=== PATIENT | female | born 1950 | race Caucasian/White ===

== ENCOUNTER → 2019-05-09 08:50 | Outpatient (BNVA) | payer MEDICARE, MEDICAID, SELFPAY | PROVIDERS: Family Provider Registered Nurse; PCP Registered Nurse; Visit Provider Registered Nurse | DX: E11.9 Type 2 diabetes mellitus without complications (principal); E03.9 Hypothyroidism, unspecified; I10 Essential (primary) hypertension; E78.5 Hyperlipidemia, unspecified | CPT/HCPCS: 80053; 80061; 83036; 84443; 85025 ==

== ENCOUNTER 2019-07-23 13:54 | Inpatient (IN) | payer MEDICARE, MEDICAID, SELFPAY ==
[2019-07-23] VITALS (7 sets, daily range): BP systolic 117–151; BP diastolic 68–83; PULSE 58–91; RESP 14–18; TEMP 36.4–37.1; O2SAT 93–99; BMI 31.1
--- NOTE | 2019-07-23 | CTR_ITS ---
PROCEDURE INFORMATION: Exam: CT Head Without Contrast Exam date and time: 07/23/2019 4:07 PM Age: 69 years old Clinical indication: Speech disturbance and weakness, extremity and weakness, facial; Left; Patient HX: L sided weakness and slurred speech - mostly resolved; Additional info: CVA TECHNIQUE: Imaging protocol: Computed tomography of the head without contrast. Total DLP: 729.79 mGy-cm Radiation optimization: All CT scans at this facility use at least one of these dose optimization techniques: automated exposure control; mA and/or kV adjustment per patient size (includes targeted exams where dose is matched to clinical indication); or iterative reconstruction. COMPARISON: No relevant prior studies available. FINDINGS: Brain: No acute intracranial mass or bleed. Mild cerebral atrophy. Moderate amount of chronic appearing cerebral hemisphere subcortical and periventricular white matter low-density. Ventricles: Normal. No ventriculomegaly. Bones/joints: Unremarkable. No acute fracture. Sinuses: Visualized sinuses are unremarkable. No fluid levels. Mastoid air cells: Visualized mastoid air cells are well aerated. Soft tissues: Unremarkable. CT/CT head wo con* [id number] IMPRESSION: No acute findings. Mild cerebral atrophy. Moderate amount of chronic appearing white matter microvascular changes. Radiation Dose CTDIVOL = (mGy): DLP = 729.79 (mGy-cm)
--- NOTE | 2019-07-23 14:13 | PC.NURSE ---
DENTURES - PATIENT HAS ONLY TOP DENTURES. SUELLENW, STEAMER TENDER
--- NOTE | 2019-07-23 14:14 | XRR_ITS ---
PROCEDURE INFORMATION: Exam: XR Chest, 1 View Exam date and time: 07/23/2019 2:19 PM Age: 69 years old Clinical indication: Shortness of breath; Additional info: Copd TECHNIQUE: Imaging protocol: XR of the chest Views: 1 view. COMPARISON: No relevant prior studies available. FINDINGS: Lungs: Unremarkable. No consolidation. Pleural space: Unremarkable. No pleural effusion. No pneumothorax. Heart/Mediastinum: Unremarkable. No cardiomegaly. Bones/joints: Unremarkable. XR/XR chest 1V portable [id number] IMPRESSION: No acute findings.
--- NOTE | 2019-07-23 14:16 | USCV_ITS ---
Enid Nguyen Age: 69 Gender: F : 1950 Exam Date: 07/23/2019 15:21 Ordering Phys: Rafael Francisco MD Technologist: Jenae Coley Exam Location: [facility] – [place] Indication: STROKE BP: 151 / 83 HR: 59 Rhythm: Sinus Technical Quality: Suboptimal MEASUREMENTS (Male / Female) Normal Values 2D ECHO LV Diastolic Diameter PLAX 2.6 cm 4.2 - 5.9 / 3.9 - 5.3 cm LV Systolic Diameter PLAX 1.8 cm LV Chamber Size 3.7 cm IVS Diastolic Thickness 1.5 cm 0.6 - 1.0 / 0.6 - 0.9 cm IVS Systolic Thickness 1.6 cm LVPW Diastolic Thickness 1.1 cm 0.6 - 1.0 / 0.6 - 0.9 cm LVPW Systolic Thickness 1.8 cm RV Chamber Size 2.3 cm LVOT Diameter 1.9 cm LV Ejection Fraction 2D Teich 61.5 % LV Ejection Fraction MOD 2C 73.5 % LV Ejection Fraction 2C AL 73.1 % LA Diameter 3.3 cm LA Width 2.1 cm LA Height 3.6 cm RA Width 2.5 cm RA Height 3.4 cm Aorta at Sinotubular Diameter 2.0 cm M-MODE LV Diastolic Diameter MM 3.9 cm 4.2 - 5.9 / 3.9 - 5.3 cm LV Systolic Diameter MM 2.5 cm LV Ejection Fraction MM Teich 66.7 % IVS Diastolic Thickness MM 1.5 cm 0.6 - 1.0 / 0.6 - 0.9 cm IVS Systolic Thickness MM 1.3 cm LVPW Diastolic Thickness MM 1.4 cm 0.6 - 1.0 / 0.6 - 0.9 cm LVPW Systolic Thickness MM 1.9 cm RV Diastolic Diameter MM 2.3 cm Aortic Annulus Diameter 2.4 cm LA Ao Ratio MM 1.4 MV E Point Septal Separation 0.4 cm DOPPLER AV Peak Velocity 169.0 cm/s LVOT Peak Velocity 102.0 cm/s AV Area Cont Eq vti 2.1 cm squared AV Area Cont Eq pk 1.7 cm squared MV Area PHT 3.1 cm squared Mitral E to A Ratio 0.7 MV E' Velocity 9.0 cm/s Mitral E to MV E' Ratio 8.3 Mitral E to LV E' Lateral Ratio 8.1 Mitral E to LV E' Septal Ratio 8.6 TV Peak E Velocity 52.0 cm/s Right Atrial Pressure 3.0 mmHg PV Peak Velocity 84.0 cm/s RV Acceleration Time 0.1 s RV Ejection Time 0.3 s RV AcT/ET 0.3 FINDINGS Left Ventricle Normal left ventricular size, systolic function and wall thickness, with no regional wall motion abnormalities. Left ventricular ejection fraction is estimated at 60 %. Normal diastolic function. Right Ventricle Normal right ventricular size and systolic function. Right Atrium Normal right atrial size. Right atrial pressure estimated at 3 mm Hg. Left Atrium Normal left atrial size. Mitral Valve Mild mitral annular calcification. No mitral valve stenosis. Trace mitral valve regurgitation. Aortic Valve Aortic valve not well visualized. No aortic valve stenosis. No aortic valve regurgitation. Tricuspid Valve Structurally normal tricuspid valve. Trace tricuspid valve regurgitation. Pulmonic Valve Pulmonic valve not well visualized. Pericardium No pericardial effusion. Aorta Normal size aortic root and proximal ascending aorta. CONCLUSIONS 1. Normal left ventricular size, systolic function and wall thickness, with no regional wall motion abnormalities. Left ventricular ejection fraction is estimated at 60 %. Normal diastolic function. 2. Normal right ventricular size and systolic function. 3. No significant valvular abnormality. 4. Right atrial pressure estimated at 3 mm Hg. 5. No prior similar studies to compare. Rachel Jenkins MD (Electronically Signed) Final Date: 23 July 2019 20:00 S
--- NOTE | 2019-07-23 14:16 | ECG_ITS ---
Measurements Intervals [place] Rate: 68 P: 51 AR: 173 QRS: -1 QRSD: 85 T: 28 QT: 409 QTc: 435 SINUS RHYTHM WITH OCCASIONAL SUPRAVENTRICULAR PREMATURE COMPLEXES LOW QRS VOLTAGE IN PRECORDIAL LEADS [QRS DEFLECTION < 1.0 mV IN CHEST LEADS] No previous ECG available for comparison Electronically Signed On 07-23-2019 17:07:59 CDT by Rachel Jenkins M.D. [email or web address]
--- NOTE | 2019-07-23 14:51 | CTR_ITS ---
PROCEDURE INFORMATION: Exam: CT Angiography Head With Contrast Exam date and time: 07/23/2019 4:07 PM Age: 69 years old Clinical indication: Speech disturbance and weakness; Patient HX: L sided weakness and slurred speech - mostly resolved; Additional info: Stroke TECHNIQUE: Imaging protocol: Computed tomography angiography of the head with intravenous contrast. 3D rendering: MIP and/or 3D reconstructed images were created by the technologist. Total DLP: 2142.23 mGy-cm Radiation optimization: All CT scans at this facility use at least one of these dose optimization techniques: automated exposure control; mA and/or kV adjustment per patient size (includes targeted exams where dose is matched to clinical indication); or iterative reconstruction. Contrast material: OMNI 350; Contrast volume: 95 ml; Contrast route: 20G; COMPARISON: CT head wo con* [id number] 07/23/2019 4:23 PM FINDINGS: Right internal carotid artery: Intracranial segment is patent with no significant stenosis or occlusion. No aneurysm. Right anterior cerebral artery: No occlusion or significant stenosis. No aneurysm. Right middle cerebral artery: No occlusion or significant stenosis. No aneurysm. Right posterior cerebral artery: No occlusion or significant stenosis. No aneurysm. Right vertebral artery: No occlusion or significant stenosis. No aneurysm. Left internal carotid artery: Intracranial segment is patent with no significant stenosis or occlusion. No aneurysm. Left anterior cerebral artery: No occlusion or significant stenosis. No aneurysm. Left middle cerebral artery: No occlusion or significant stenosis. No aneurysm. Left posterior cerebral artery: No occlusion or significant stenosis. No aneurysm. Left vertebral artery: No occlusion or significant stenosis. No aneurysm. Basilar artery: No occlusion or significant stenosis. No aneurysm. IMPRESSION: No large vessel stenosis or occlusion. PROCEDURE INFORMATION: Exam: CT Angiography Neck With Contrast Exam date and time: 07/23/2019 4:07 PM Age: 69 years old Clinical indication: Speech disturbance and weakness; Patient HX: L sided weakness and slurred speech - mostly resolved; Additional info: Stroke TECHNIQUE: Imaging protocol: Computed tomography angiography of the neck with intravenous contrast. 3D rendering: MIP and/or 3D reconstructed images were created by the technologist. Total DLP: 2142.23 mGy-cm Radiation optimization: All CT scans at this facility use at least one of these dose optimization techniques: automated exposure control; mA and/or kV adjustment per patient size (includes targeted exams where dose is matched to clinical indication); or iterative reconstruction. Contrast material: OMNI 350; Contrast volume: 95 ml; Contrast route: 20G; COMPARISON: CT head wo con* [id number] 07/23/2019 4:23 PM FINDINGS: VASCULATURE: Right common carotid artery: Tortuous. Moderate amount of calcified plaque about the right carotid bifurcation region. Right internal carotid artery: Tortuous. Mild 10-15% stenosis proximal right internal carotid artery. Right external carotid artery: No occlusion or stenosis of the origin. Right vertebral artery: Dominant right vertebral artery. No stenosis. No dissection or occlusion. Left common carotid artery: Tortuous. Moderate amount of calcified plaque about the left carotid bifurcation region. 60% stenosis distal left common carotid artery/bulb (series 3, axial image 54). Left internal carotid artery: Tortuous. Mild 10-15% stenosis proximal right internal carotid artery. Left external carotid artery: 50% stenosis proximal left external carotid artery. Left vertebral artery: No stenosis. No dissection or occlusion. NECK: Bones/joints: No acute fracture. Soft tissues: Normal. No significant soft tissue swelling. CT/CT angio headneck* [id number] IMPRESSION: 1.) Moderate amount of calcified plaque about both carotid bifurcation regions. 2.) 60% stenosis distal left common carotid artery/bulb. 3.) 50% stenosis proximal left external carotid artery. COMMENTS: Using NASCET method for measuring degree of carotid artery stenosis: Mild is less than 50% stenosis. Moderate is 50-69% stenosis. Severe is 70-94% stenosis. Near occlusion is 95-99% stenosis. Radiation Dose CTDIVOL = (mGy): DLP = 2142.23~2142.23 (mGy-cm)
[2019-07-23 15:38] LABS: INR 1.13 (0.8-1.2)
[2019-07-23 15:46] LABS: Albumin Level 4.2 g/dL (3.5-5.2); Alkaline Phosphatase 76 IU/L (35-105); Anion Gap 17.1 (5-19); Blood Urea Nitrogen 13 mg/dL (8-23); Calcium 9.3 mg/dL (8.5-10.5); Carbon Dioxide 24 mmol/L (22-29); Chloride 100 mmol/L (98-107); Globulin 2.6 g/dL (1.3-4.6); Glucose 157 mg/dL (65-115); Osmolality Calculated 283 mOsm/kg (285-295); Potassium 4.1 mmol/L (3.5-5.1); Sodium 137 mmol/L (136-145); Total Bilirubin 0.4 mg/dL (0.15-1.2); Total Protein 6.8 g/dL (6.6-8.7)
[2019-07-23 15:47] LABS: Troponin(5th) Baseline 7 ng/mL (0-10)
[2019-07-23] MEDS: sodium chloride 0.9% 1,000 ML 75 ML IV (15:51)
[2019-07-23] MEDS: enoxaparin 40 mg/0.4 mL Syringe SUBCUT (15:52)
[2019-07-23] MEDS: atorvastatin 40 mg Tablet 80 MG PO (15:52)
[2019-07-23] MEDS: aspirin 325 mg EC Tablet PO (15:52)
[2019-07-23 16:10] LABS: Thyroid Stimulating Hormone 4.42 uIU/mL (0.27-4.20)
[2019-07-23 16:29] LABS: Alanine Aminotransferase 56 U/L (0-33); Aspartate Amino Transferase 52 U/L (0-32)
[2019-07-23] MEDS: iohexol 350 mg/mL 100 mL Btl IV (16:29)
[2019-07-23 17:28] LABS: Glucose Point of Care 160 mg/dL (70-110)
[2019-07-23 17:47] LABS: Basophils # 0.1 10^3/uL (0.0-0.1); Basophils % 0.8 %; Eosinophils # 0.4 10^3/uL (0.0-0.8); Eosinophils % 6.2 %; Hematocrit 42.7 % (37.0-47.0); Lymphocytes # 2.3 10^3/uL (0.8-4.8); Lymphocytes % 35.9 %; Mean Corpuscular HGB Conc 32.8 g/dL (30.0-36.0); Mean Corpuscular Hemoglobin 28.6 pg (28.0-34.0); Mean Corpuscular Volume 87.3 fL (81-99); Mean Platelet Volume 10.4 fL (7.4-10.4); Monocytes # 0.6 10^3/uL (0.2-0.9); Monocytes % 8.9 %; Neutrophils # 3.1 10^3/uL (1.8-7.7); Neutrophils % 47.6 %; Nucleated Red Blood Cells % 0 %; Platelet Count 241 10^3/cmm (130-400); Red Blood Count 4.89 10^6/uL (4.1-5.3); Red Cell Distribution Width 14.1 % (12.1-15.1); White Blood Count 6.5 10^3/uL (4.0-10.0)
--- NOTE | 2019-07-23 17:54 | PC.NURSE ---
stroke book at bedside - book filled out and went over with patient. orlandow,dietary service aide
[2019-07-23 18:03] LABS: Troponin 5 2HR 7.07 ng/mL (0-10); Troponin 5 2HR Delta 0.07 ABS# (0-10)
[2019-07-23 18:33] LABS: Estmated Average Glucose 169; Hemoglobin A1C 7.5 % (4.0-6.0)
--- NOTE | 2019-07-23 18:44 | P.HP_ITS ---
Providers/Chief Complaint Admitting Physician: Rafael Francisco MD Primary Care Provider: JESUS Ellis Chief Complaint: cva History of Present Illness Enid Nguyen is a 69 year old female with past medical history of hypertension her, hyperlipidemia, type 2 diabetes mellitus on diet modification treatment who presented to [facility] today complaining of left- sided weakness, dysarthria, slurry speech, difficulty to swallow since she woke up in the morning on July 20. As per her the symptoms have been stable and have not been worsening. She denies of any headache, dizziness, palpitations, nausea, vomiting, falls, difficulty breathing, flulike symptoms, recent sick contacts, recent travels. At [facility] CT head was done which was nega tive was requested as the did not have any facilities to do further work-up. On evaluation patient is lying comfortably in bed complaining of weakness on the left arm and leg with mild slurry speech. Review of Systems Const: Denies: fever, chills, body aches, change in appetite, malaise, night sweats, diaphoresis, change in sleep pattern, daytime sleepiness or snoring Eyes: Denies: change in vision, blurry vision, photophobia, eye discomfort or eye discharge ENMT: Denies: throat pain, enlarged tonsils, hoarseness, mouth pain, oral sores/lesions, dry mouth, tinnitus, nasal congestion or post nasal drip Card: Denies: chest pain, palpitations, irregular heart rhythm, edema, swelling of feet/ankles, lightheadedness, syncope, pre-syncope, shortness of breath on exertion, shortness of breath when lying down, leg pain with exertion or bluish discoloration of hands/feet Resp: Denies: shortness of breath, productive cough, non-productive cough, wheezing, stridor, pain on inspiration, change in phlegm color, coughing up blood or chest congestion GI: Denies: abdominal pain, nausea, vomiting, vomiting blood, coffee grounds in vomit, difficulty swallowing, heartburn/indigestion, diarrhea, constipation, bloating, cramping, change in bowel habits, painful bowel movements, blood in stool or black tarry stool : Denies: flank pain, painful urination, urinary frequency, urinary urgency, urinary hesitancy, nighttime urination or blood in urine Musc: Denies: neck pain, back pain, extremity pain, joint pain, joint swelling, redness, joint stiffness or limited range of motion Neuro: Reports: weakness in extremities, lack of coordination, difficulty walking and slurred speech; Denies: headache, numbness in extremities, changes in sensation, frequent falls, dizziness, vertigo, confusion, difficulty communicating thoughts or seizure-like activity Psych: Denies: anxiety, depression, mood swings, panic attacks, hopelessness or irritability Endo: Denies: excessive urination, excessive thirst, tired all the time, cold intolerance, excessive sweating, flushing or heat intolerance Juan Diego/Lymph: Denies: easy bruising or easy bleeding All/Imm: Denies: tongue swelling, facial swelling or acute wheezing Medications/Allergies Home Medications Medication Instructions Recorded Confirmed Last Taken Type atorvastatin DAILY 07/23/19 1 Day Ago History ~07/22/19 Allergies Allergy/AdvReac Type Severity Reaction Status Date / Time Fish Flavor Allergy Unknown Uncoded 04/26/19 13:34 seafood Allergy Unknown Uncoded 04/26/19 13:34 PFSH Acute PFSH: Surgical History (Updated 07/23/19 @ 18:52 by Rafael Francisco MD) History of appendectomy Social History Smoking and tobacco status: former smoker Quit status (tobacco): has quit using tobacco Alcohol intake: never Lives independently: Yes Marital status: Single Current occupational status: retired Current gender identity: Female Vitals/I&O/Wt Last Vital Signs Temp 98.7 F 07/23/19 16:00 Pulse 91 07/23/19 16:46 Resp 18 07/23/19 16:46 BP 131/68 07/23/19 16:00 Pulse Ox 93 07/23/19 16:46 07/23/19 07/23/19 07/23/19 06:59 14:59 22:59 Output Total 400 / 400 Balance -400 / -400 Weight last 48 hrs Weight 93.077 kg Weight 93.077 kg Physical Exam Narrative: EXAM NARRATIVE: General: No acute distress, AO x3 HEENT: PERRLA, pupils bilaterally equal and reactive Chest: Normal vesicular breath sounds, no added sounds, equal good air entry bilaterally CVS: S1-S2 regular, no murmurs, no tachycardia, no gallops, no rubs Abdomen: Soft, nontender, no organomegaly, bowel sounds present Neuro: Pupils bilaterally equal and reactive, slurred speech present, right facial droop present, left upper limb and lower limb power 3/5, right upper limb and lower limb power 5/5,, gait not assessed, sensations intact. Data : 07/23/19 17:10 07/23/19 14:56 A&P Assessment and plan (1) Stroke: Status: Acute Code(s): I63.9 - Cerebral infarction, unspecified (2) Type 2 diabetes mellitus: Status: Chronic Qualifiers: Diabetes mellitus account director insulin use: without intermediate use Diabetes mellitus complication status: without complication Qualified Code(s): E11.9 - Type 2 diabetes mellitus without complications Code(s): E11.9 - Type 2 diabetes mellitus without complications (3) Hyperlipidemia: Status: Chronic Qualifiers: Hyperlipidemia type: mixed hyperlipidemia Qualified Code(s): E78.2 - Mixed hyperlipidemia Code(s): E78.5 - Hyperlipidemia, unspecified (4) Hypothyroid: Status: Chronic Qualifiers: Hypothyroidism type: acquired Qualified Code(s): E03.9 - Hypothyroidism, unspecified Code(s): E03.9 - Hypothyroidism, unspecified (5) Hypertension: Status: Chronic Qualifiers: Hypertension type: essential hypertension Qualified Code(s): I10 - Essential (primary) hypertension Code(s): I10 - Essential (primary) hypertension Additional A&P Information Stroke: Admit to [facility] with telemetry. Check stat CBC, CMP, troponins, EKG, chest x-ray, PT/INR. As continually 5 mg stat followed by 81 mg daily. Statin 80 mg stat and daily. Check lipid panel, HbA1c, TSH in 8 AM. CTA head and neck, MRI head. PT/OT/speech evaluation. N.p.o. till speech and swallow evaluation. Echocardiogram to the structural abnormality. Telemetry for ruling out of atrial fibrillation. Hypertension: We will withhold antihypertensives right now for permissive hypertension for next 24 hours. Type 2 diabetes mellitus: Check HbA1c, low-dose insulin sliding scale protocol with meals and at bedtime. Full code. N.p.o. Lovenox for DVT prophylaxis Care coordination consult for safe discharge planning. Attestations Medical Necessity Statement*: Admission for more than 2 midnights for acute stroke. Time Spent in Patient Care: Greater than 35 minutes Coding Level of Care Code Acute Internal Sales for [employer] Diagnoses Stroke I63.9 Type 2 diabetes mellitus E11.9 Diabetes mellitus account director insulin use: without account director use Diabetes mellitus complication status: without complication Hyperlipidemia E78.2 Hyperlipidemia type: mixed hyperlipidemia Hypothyroid E03.9 Hypothyroidism type: acquired Hypertension I10 Hypertension type: essential hypertension
[2019-07-23 21:38] LABS: Glucose Point of Care 163 mg/dL (70-110)
[2019-07-24] VITALS: BP 164/79; PULSE 66; RESP 17; TEMP 36.6
[2019-07-24 04:00] VITALS: BP 144/77; PULSE 58; RESP 17; TEMP 36.3; O2SAT 96
[2019-07-24 06:02] LABS: Basophils # 0.1 10^3/uL (0.0-0.1); Basophils % 1.1 %; Eosinophils # 0.5 10^3/uL (0.0-0.8); Eosinophils % 8.8 %; Hematocrit 43.1 % (37.0-47.0); Lymphocytes # 2.1 10^3/uL (0.8-4.8); Lymphocytes % 37.1 %; Mean Corpuscular HGB Conc 32.5 g/dL (30.0-36.0); Mean Corpuscular Hemoglobin 28.7 pg (28.0-34.0); Mean Corpuscular Volume 88.3 fL (81-99); Mean Platelet Volume 10.2 fL (7.4-10.4); Monocytes # 0.5 10^3/uL (0.2-0.9); Monocytes % 9.3 %; Neutrophils # 2.4 10^3/uL (1.8-7.7); Neutrophils % 43.2 %; Nucleated Red Blood Cells % 0 %; Platelet Count 227 10^3/cmm (130-400); Red Blood Count 4.88 10^6/uL (4.1-5.3); Red Cell Distribution Width 14.3 % (12.1-15.1); White Blood Count 5.6 10^3/uL (4.0-10.0)
[2019-07-24 06:27] LABS: Alanine Aminotransferase 43 U/L (0-33); Albumin Level 3.6 g/dL (3.5-5.2); Alkaline Phosphatase 70 IU/L (35-105); Anion Gap 15.8 (5-19); Aspartate Amino Transferase 37 U/L (0-32); Blood Urea Nitrogen 10 mg/dL (8-23); Carbon Dioxide 25 mmol/L (22-29); Chloride 101 mmol/L (98-107); Globulin 1.9 g/dL (1.3-4.6); Glucose 178 mg/dL (65-115); Osmolality Calculated 286 mOsm/kg (285-295); Potassium 3.8 mmol/L (3.5-5.1); Sodium 138 mmol/L (136-145); Total Bilirubin 0.5 mg/dL (0.15-1.2); Total Protein 5.5 g/dL (6.6-8.7)
[2019-07-24 06:34] LABS: Glucose Point of Care 181 mg/dL (70-110)
[2019-07-24 06:49] LABS: Cholesterol 264 mg/dL (0-200); HDL Cholesterol 30 mg/dL (60-100); Triglycerides 491 mg/dL (0-150)
[2019-07-24 07:16] LABS: LDL Cholesterol Direct 182 mg/dL (0-100)
[2019-07-24 08:00] VITALS: BP 164/84; PULSE 65; RESP 18; TEMP 36.5; O2SAT 97
[2019-07-24] MEDS: aspirin 81 mg EC Tablet PO (08:42)
[2019-07-24] MEDS: levothyroxine 125 mcg Tablet PO (09:05)
[2019-07-24 12:00] VITALS: BP 166/92; PULSE 70; RESP 18; TEMP 36.6; O2SAT 95
[2019-07-24 12:39] LABS: Glucose Point of Care 169 mg/dL (70-110)
--- NOTE | 2019-07-24 14:17 | PM.PN ---
Subjective Subjective: Interval history: The patient denies any pain today. She continues to have some weakness on the left side, however she feels that it is gradually improving. She continues to have some mumbled speech, that she also feels is gradually improving. Vitals/I&O/Wt Last Vital Signs Temp 97.8 F 07/24/19 12:00 Pulse 70 07/24/19 12:00 Resp 18 07/24/19 12:00 BP 166/92 07/24/19 12:00 Pulse Ox 95 07/24/19 12:00 07/23/19 07/24/19 07/24/19 22:59 06:59 14:59 Output Total 400 / 400 200 / 600 Balance -400 / -400 -200 / -600 Weight last 48 hrs Weight 216 lb 2 oz Weight 216 lb 2 oz Weight 205 lb 3.2 oz Weight 205 lb 3.2 oz Physical Exam Narrative: EXAM NARRATIVE: General: Alert and oriented x3 Eyes: Pupils equal and reactive to light and accommodation bilaterally. Extraocular muscles intact. Mouth: Mucous membranes moist. Cardiac: Regular rate and rhythm without murmurs. Lungs: Clear to auscultation bilaterally Abdomen: Soft, nontender without hepatosplenomegaly. Extremities: No edema Neuro: There is mild facial drooping on the left face with sparing of the forehead. Tongue deviates to the left. There is 4-5 strength in the left upper and lower extremities. Normal sensation in the bilateral extremities and face. Data : 07/24/19 05:32 07/24/19 05:32 A&P Assessment and plan (1) Stroke: Status: Acute Code(s): I63.9 - Cerebral infarction, unspecified (2) Hyperlipidemia: Status: Chronic Qualifiers: Hyperlipidemia type: mixed hyperlipidemia Qualified Code(s): E78.2 - Mixed hyperlipidemia Code(s): E78.5 - Hyperlipidemia, unspecified (3) Hypertension: Status: Chronic Qualifiers: Hypertension type: essential hypertension Qualified Code(s): I10 - Essential (primary) hypertension Code(s): I10 - Essential (primary) hypertension (4) Hypothyroid: Status: Chronic Qualifiers: Hypothyroidism type: acquired Qualified Code(s): E03.9 - Hypothyroidism, unspecified Code(s): E03.9 - Hypothyroidism, unspecified (5) Type 2 diabetes mellitus: Status: Chronic Qualifiers: Diabetes mellitus terminal worker insulin use: without prison use Diabetes mellitus complication status: without complication Qualified Code(s): E11.9 - Type 2 diabetes mellitus without complications Code(s): E11.9 - Type 2 diabetes mellitus without complications Additional A&P Information 1. Acute stroke -patient has signs of a stroke affecting her left upper and lower extremities and speech. There were no changes on the CT head, and an MRI will be done tomorrow to look for the underlying cause. The patient did have a 60% blockage in the left coronary artery. Consideration for CEA could be made depending on the findings of the MRI. Continue with statin and aspirin. The patient was outside of the window for TPA upon admission. Physical therapy, speech therapy and occupational therapy ordered. 2. Diabetes -continue with sliding scale. 3. Hypertension -we will go ahead and restart her home medication for blood pressure control. 4. Hypothyroidism -continue with levothyroxine. 5. Dyslipidemia -continue with statin. 6. Prophylaxis -Lovenox for DVT prophylaxis. Attestations Medical Necessity Statement*: The patient continues need treatment in the hospital for stroke. We are awaiting MRI results for tomorrow. Possible discharge home after that. The patient's stable cross 2 midnights. Coding Level of Care Code Acute Attendant Lodging Facilities for [facility] [place] Diagnoses Stroke I63.9 Hyperlipidemia E78.2 Hyperlipidemia type: mixed hyperlipidemia Hypertension I10 Hypertension type: essential hypertension Hypothyroid E03.9 Hypothyroidism type: acquired Type 2 diabetes mellitus E11.9 Diabetes mellitus terminal worker insulin use: without prison use Diabetes mellitus complication status: without complication
[2019-07-24 15:52] VITALS: BP 179/80; PULSE 69; RESP 18; TEMP 37; O2SAT 98
[2019-07-24] MEDS: enoxaparin 40 mg/0.4 mL Syringe SUBCUT (16:35)
[2019-07-24 17:08] LABS: Glucose Point of Care 189 mg/dL (70-110)
[2019-07-24 19:48] VITALS: BP 144/78; PULSE 60; RESP 18; TEMP 36.8; O2SAT 95
[2019-07-24] MEDS: atorvastatin 40 mg Tablet PO (20:43)
[2019-07-24 20:47] LABS: Glucose Point of Care 147 mg/dL (70-110)
[2019-07-25] VITALS: BP 144/73; PULSE 57; RESP 17; TEMP 36.6; O2SAT 96
[2019-07-25 03:47] VITALS: BP 144/69; PULSE 57; RESP 20; TEMP 36.9; O2SAT 94
[2019-07-25 06:15] LABS: Basophils % 0.5 %; Eosinophils # 0.4 10^3/uL (0.0-0.8); Eosinophils % 6.3 %; Hematocrit 44.3 % (37.0-47.0); Hemoglobin 14.6 g/dL (11.5-15.3); Lymphocytes # 1.9 10^3/uL (0.8-4.8); Lymphocytes % 33.5 %; Mean Corpuscular Hemoglobin 29.3 pg (28.0-34.0); Mean Platelet Volume 10.1 fL (7.4-10.4); Monocytes # 0.4 10^3/uL (0.2-0.9); Monocytes % 7.4 %; Neutrophils # 2.9 10^3/uL (1.8-7.7); Neutrophils % 51.9 %; Nucleated Red Blood Cells % 0 %; Platelet Count 241 10^3/cmm (130-400); Red Blood Count 4.98 10^6/uL (4.1-5.3); Red Cell Distribution Width 14.2 % (12.1-15.1); White Blood Count 5.5 10^3/uL (4.0-10.0)
[2019-07-25 06:32] LABS: Alanine Aminotransferase 41 U/L (0-33); Alkaline Phosphatase 76 IU/L (35-105); Anion Gap 15.7 (5-19); Aspartate Amino Transferase 32 U/L (0-32); Blood Urea Nitrogen 9 mg/dL (8-23); Calcium 9.4 mg/dL (8.5-10.5); Carbon Dioxide 26 mmol/L (22-29); Chloride 101 mmol/L (98-107); Glucose 203 mg/dL (65-115); Osmolality Calculated 290 mOsm/kg (285-295); Potassium 3.7 mmol/L (3.5-5.1); Sodium 139 mmol/L (136-145); Total Bilirubin 0.4 mg/dL (0.15-1.2)
[2019-07-25 06:38] LABS: Glucose Point of Care 185 mg/dL (70-110)
[2019-07-25 07:07] LABS: Magnesium 2.2 mg/dL (1.7-2.3); Phosphorus 3.2 mg/dL (2.5-4.5)
[2019-07-25 07:56] VITALS: BP 160/79; PULSE 71; RESP 12; TEMP 531.1; TEMP 988; O2SAT 98
[2019-07-25] MEDS: levothyroxine 125 mcg Tablet PO (09:16)
[2019-07-25] MEDS: aspirin 81 mg EC Tablet PO (09:16)
--- NOTE | 2019-07-25 09:45 | NUR.SHIFT ---
PT OFF THE FLOOR, FOR MRI
--- NOTE | 2019-07-25 11:09 | PC.NURSE ---
patient given Ativan in MRI
[2019-07-25 11:18] LABS: Free T4 Free Thyroxine 1.08 ng/dL (0.82-1.77); T3 Free 2.3 PG/ML (2.0-4.4)
[2019-07-25 12:00] VITALS: BP 162/98; PULSE 75; RESP 18; TEMP 37.3; O2SAT 94
--- NOTE | 2019-07-25 12:00 | MR_ITS ---
WS: [id number] MRI BRAIN WITHOUT CONTRAST HISTORY: stroke COMPARISON: CT head 07/23/2019 TECHNIQUE: Diffusion imaging, multiplanar T1, T2 and FLAIR imaging obtained. Acute diffusion-weighted abnormality in the RIGHT fany extends to the midline. No associated hemorrha ge or mass effect. No additional acute infarcts. There is extensive patchy and confluent T2 and FLAIR signal abnormalities throughout the white matter beginning at the vertex and extensively around the ventricles. Ventricles and extra-axial spaces are normal. Mild atrophy. No inferior displacement of cerebellar tonsils. The sella turcica and pituitary gland are unremarkabl e. Posterior fossa is also unremarkable. Dural venous sinuses and [place] of [place] demonstrate no abnormality on this unenhanced studies. Paranasal sinuses: Clear. Mastoid air cells: Normal. Calvarium and scalp: Intact. MR/MR head wo con* [id number] IMPRESSION: 1. Acute RIGHT pontine infarct which extends to the midline. No hemorrhage. 2. Severe chronic white matter small vessel ischemic disease.
[2019-07-25] MEDS: clopidogrel 75 mg Tablet PO (12:36)
[2019-07-25] MEDS: LORazepam 2 mg/mL INJ 1 mL 0.5 MG IVP (12:37)
--- NOTE | 2019-07-25 12:53 | PM.DCS ---
Discharge Providers Date of Admission: 07/23/19 13:54 Date of Discharge: July 25, 2019 Attending Provider at Admission: Rafael Francisco MD Attending Provider at Discharge: Rafael Francisco MD Primary Care Provider: JESUS Ellis Diagnoses at Discharge Discharge Diagnosis (1) Stroke: Status: Acute (2) Hyperlipidemia: Status: Chronic Qualifiers: Hyperlipidemia type: mixed hyperlipidemia Qualified Code(s): E78.2 - Mixed hyperlipidemia (3) Hypertension: Status: Chronic Qualifiers: Hypertension type: essential hypertension Qualified Code(s): I10 - Essential (primary) hypertension (4) Hypothyroid: Status: Chronic Qualifiers: Hypothyroidism type: acquired Qualified Code(s): E03.9 - Hypothyroidism, unspecified (5) Type 2 diabetes mellitus: Status: Chronic Qualifiers: Diabetes mellitus shelter insulin use: without shelter use Diabetes mellitus complication status: without complication Qualified Code(s): E11.9 - Type 2 diabetes mellitus without complications Reason for Visit Reason for Visit: Reason For Visit: cva Hospital Course Discharge Summary: Enid Nguyen is a 69 year old female with past medical history of hypertension her, hyperlipidemia, type 2 diabetes mellitus on diet modification treatment who presented to [facility] today complaining of left-sided weakness, dysarthria, slurry speech, difficulty to swallow since she woke up in the morning on July 20. As per her the symptoms have been stable and have not been worsening. She denies of any headache, dizziness, palpitations, nausea, vomiting, falls, difficulty breathing, flulike symptoms, recent sick contacts, recent travels. CTA was done which showed 60% stenosis of left common carotid artery/bulb, MRI brain was done which showed acute right pontine infarct going to midline. Patient worked well with physical therapy, Occupational Therapy. She was seen by speech therapy and the diet was advanced accordingly. During hospitalization on telemetry she remained in sinus rhythm. Echocardiogram was done which did not show any structural abnormality and showed an EF of 60%. Case was discussed with Dr. Gutiérrez. Patient is been discharged in hemodynamically and neurologically stable condition to follow-up with Dr. Gutiérrez in 2 weeks. Patient was started on aspirin and Plavix. Lipid panel showed derangement so her home dose of atorvastatin was increased to 80 mg. Physical Exam Narrative: EXAM NARRATIVE: General: No acute distress, AO x3 HEENT: PERRLA, pupils bilaterally equal and reactive Chest: Normal vesicular breath sounds, no added sounds, equal good air entry bilaterally CVS: S1-S2 regular, no murmurs, no tachycardia, no gallops, no rubs Abdomen: Soft, nontender, no organomegaly, bowel sounds present Neuro: Pupils bilaterally equal and reactive, slurred speech present, right facial droop present, left upper limb and lower limb power 3/5, right upper limb and lower limb power 5/5,, gait not assessed, sensations intact. Discharge Data Data Completed and Pending: Completed Studies During Hospitalization Category Date Time Status CT angio headneck * 02721/[id number] Rout ine Cat Scan 07/23/19 14:[address] head wo con* 7 0450 Routine Cat Scan 07/23/19 Completed XR chest 1V buffy ble [id number] Routine Exams 07/23/19 14:14 Completed MR head wo con* 7 0551 Routine MRI 07/25/19 12:00 Completed CV echo complete* [id number] Routine Ultrasound 07/23/19 14:16 Completed Pending at discharge Category Date Time Status Complete Blood Co unt w/Auto AM LABS Lab 07/26/19 04:00 Ordered Comprehensive Met abolic Panel AM LA BS Lab 07/26/19 04:00 Ordered Labs from last 24 hours 07/25/19 07/25/19 07/25/19 06:22 05:55 05:55 WBC RBC Hgb Hct MCV MCH MCHC RDW Plt Count MPV Neut % (Auto) Lymph % (Auto) [place] % (Auto) Eos % (Auto) Baso % (Auto) Neut # (Auto) Lymph # (Auto) [place] # (Auto) Eos # (Auto) Baso # (Auto) Nucleated RBC % (a uto) Nucleated RBCs # Sodium Potassium Chloride Carbon Dioxide Anion Gap BUN Creatinine Glucose POC Glucose 185 Calculated Osmolal ity Calcium Phosphorus 3.2 Magnesium 2.2 Total Bilirubin AST ALT Alkaline Phosphata se Total Protein Albumin Globulin Free T4 1.08 Free T3 2.3 07/25/19 07/25/19 07/24/19 05:55 05:55 20:38 WBC 5.5 RBC 4.98 Hgb 14.6 Hct 44.3 MCV 89.0 MCH 29.3 MCHC 33.0 RDW 14.2 Plt Count 241 MPV 10.1 Neut % (Auto) 51.9 Lymph % (Auto) 33.5 [place] % (Auto) 7.4 Eos % (Auto) 6.3 Baso % (Auto) 0.5 Neut # (Auto) 2.9 Lymph # (Auto) 1.9 [place] # (Auto) 0.4 Eos # (Auto) 0.4 Baso # (Auto) 0.0 Nucleated RBC % (a uto) 0 Nucleated RBCs # 0.0 Sodium 139 Potassium 3.7 Chloride 101 Carbon Dioxide 26 Anion Gap 15.7 BUN 9 Creatinine 0.8 Glucose 203 H POC Glucose 147 Calculated Osmolal ity 290 Calcium 9.4 Phosphorus Magnesium Total Bilirubin 0.4 AST 32 ALT 41 H Alkaline Phosphata se 76 Total Protein 6.0 L Albumin 4.0 Globulin 2.0 Free T4 Free T3 07/24/19 17:02 WBC RBC Hgb Hct MCV MCH MCHC RDW Plt Count MPV Neut % (Auto) Lymph % (Auto) [place] % (Auto) Eos % (Auto) Baso % (Auto) Neut # (Auto) Lymph # (Auto) [place] # (Auto) Eos # (Auto) Baso # (Auto) Nucleated RBC % (a uto) Nucleated RBCs # Sodium Potassium Chloride Carbon Dioxide Anion Gap BUN Creatinine Glucose POC Glucose 189 Calculated Osmolal ity Calcium Phosphorus Magnesium Total Bilirubin AST ALT Alkaline Phosphata se Total Protein Albumin Globulin Free T4 Free T3 Vitals: Last Vital Signs Temp 99.1 F 07/25/19 12:00 Pulse 75 07/25/19 12:00 Resp 18 07/25/19 12:00 BP 162/98 07/25/19 12:00 Pulse Ox 94 07/25/19 12:00 Discharge Plan Discharge Patient Disposition: Home Health Service Condition: Stable Prescriptions: New clopidogrel 75 mg Tablet 75 mg PO DAILY Qty: 30 RF: 0 atorvastatin 40 mg Tablet 80 mg PO BEDTIME Qty: 60 RF: 0 Continued (DME) lancets [Micro Thin Lancets] 33 gauge misc See Rx Instructions .ROUTE .MEDSUPPLY Qty: 100 RF: 0 aspirin [Adult Aspirin Regimen] 81 mg tablet,delayed release (DR/EC) 81 mg PO ONCE RF: 0 meclizine 12.5 mg tablet See Rx Instructions PO BID PRNRF: 0 telmisartan-hydrochlorothiazid [Micardis HCT] 80-12.5 mg tablet 1 tab PO ONCE Qty: 90 RF: 0 levothyroxine 125 mcg capsule 125 mcg PO QDAY Qty: 90 RF: 0 levocetirizine 5 mg tablet 5 mg PO ONCE Qty: 90 RF: 0 celecoxib 100 mg capsule 100 mg PO BID 90 Days Qty: 180 RF: 0 Discontinued atorvastatin 40 mg tablet 40 mg PO ONCE RF: 0 atorvastatin 40 mg tablet DAILY RF: 0 Discharge Orders: Discharge Order (Routine); Ordered 07/25/19 Ordered By: Rafael Francisco Referrals: Jenn Gutiérrez MD [Physician] - 2 weeks Debi Mitchell FNP [Primary Care Provider] - 2 weeks Discharge Diet: Cardiac and Low Fat Discharge Activity: Resume usual activity Activity Restrictions/Additional Instructions: Follow-up with Dr. Gutiérrez in 2 weeks. Lifestyle modifications as discussed with at least 40 to 50 minutes of regular exercise for at least 4 out of 7 days. Cardiac low-fat diet. Plavix has been started to medication, atorvastatin has been increased to 80 mg daily. Check lipid panel in 3 months. Discharge Attestations Time Spent in Discharge Care*: greater than 30 min Specific Discharge Activities: Specific discharge activities: educating patient, discussing with pcp/other providers and discussing with adult protective caseworker/social workers/dc planners Quality Metrics Clinical Quality Measures During this hospital stay, did patient experience: Stroke Contraindication to Antithrombotic: Antithrombotic prescribed Contraindication to Anticoagulation: Overlap treatment not indicated Contraindication to Statin: Statin prescribed Coding Level of Care Code Acute Direct Service Worker for [facility] Diagnoses Stroke I63.9 Hyperlipidemia E78.2 Hyperlipidemia type: mixed hyperlipidemia Hypertension I10 Hypertension type: essential hypertension Hypothyroid E03.9 Hypothyroidism type: acquired Type 2 diabetes mellitus E11.9 Diabetes mellitus shelter insulin use: without shelter use Diabetes mellitus complication status: without complication
--- NOTE | 2019-07-25 12:57 | PM.MISC ---
Miscellaneous Note Note: I talked with Dr. Harkins. This is a 69-year-old woman who presented with left-sided weakness. Her CT angiogram showed asymptomatic 60% stenosis of the left carotid artery and no other vascular stenosis. MRI shows a left pontine infarct. Echocardiogram was unremarkable. We agreed that the best management of this patient is risk factor management, especially being aggressive with aspirin plus Plavix and increased exercise. We will see her in the office when I return from vacation.
[2019-07-25 14:53] VITALS: BP 162/98; PULSE 75; RESP 18; TEMP 37.3; O2SAT 94
[2019-07-25 20:53] LABS: Glucose Point of Care 145 mg/dL (70-110)
== END 2019-07-25 14:54 | disposition home health service (06) | DRG 65 ==
PROVIDERS: Family Medicine; Admitting Provider Student in an Organized Health Care Education/Training Program; Family Provider Registered Nurse; PCP Registered Nurse; Visit Provider Student in an Organized Health Care Education/Training Program
DX: I63.9 Cerebral infarction, unspecified (principal); G81.90 Hemiplegia, unspecified affecting unspecified side; E78.2 Mixed hyperlipidemia; E03.9 Hypothyroidism, unspecified; I10 Essential (primary) hypertension; E11.9 Type 2 diabetes mellitus without complications; Z87.891 Personal history of nicotine dependence; Z79.4 Long term (current) use of insulin; Z79.890 Hormone replacement therapy
CPT/HCPCS: 12345; 36415; 36416; 70450; 70496; 70498; 70551; 71045; 80053; 80061; 82962; 83036; 83721; 83735; 84100; 84439; 84443; 84481; 84484; 85025; 85610; 92523; 92610; 93005; 93306; 94664; 96372; 97110; 97116; 97162; 97166; G0379; J1650; J1815; J2060; J7030; Q9967

== ENCOUNTER → 2019-08-23 12:26 | Outpatient (BNVA) | payer MEDICARE, MEDICAID, SELFPAY | PROVIDERS: Family Provider Registered Nurse; PCP Registered Nurse; Referring Provider Student in an Organized Health Care Education/Training Program; Visit Provider Specialist | DX: E11.9 Type 2 diabetes mellitus without complications (principal); E78.2 Mixed hyperlipidemia; I10 Essential (primary) hypertension; Z86.73 Personal history of transient ischemic attack (TIA), and cerebral infarction without residual deficits; Z87.891 Personal history of nicotine dependence | CPT/HCPCS: 99205 ==

== ENCOUNTER → 2019-11-03 15:17 | Outpatient (BNVA) | payer MEDICARE, MEDICAID, SELFPAY | PROVIDERS: Family Provider Registered Nurse; PCP Registered Nurse; Visit Provider Registered Nurse | DX: E11.9 Type 2 diabetes mellitus without complications (principal); I10 Essential (primary) hypertension | CPT/HCPCS: 80053; 83036 ==

== ENCOUNTER 2019-12-28 06:50 | Outpatient (CLI) | payer MEDICARE, MEDICAID, SELFPAY ==
[2019-12-28 06:55] VITALS: BMI 30.4
--- NOTE | 2019-12-28 07:08 | ECG_ITS ---
[facility] Test Date: 2019-12-28 Pat Name: Enid Nguyen Department: Room: Gender: Female Information Receptionist: : 1950 Requested By: Diane Arteaga Order Number: [id number] Cheng MD: Dallas Guerra M.D. Interpretive Statements NAME OF STUDY: LEXISCAN SESTAMIBI STRESS TEST INDICATION: [Chest Pain, ] Procedure: At the baseline, the blood pressure was 163/92 mmHg, with a heart rate of 69 Bpm. The electrocardiogram showed normal sinus rhythm, normal axis and normal ST and T's. The Lexiscan was infused over a period of 20 seconds. Total of 0.4 mg of Lexiscan was infused. The stress phase was continued for a total of 5 minutes. Heart rate at the end of stress phase was 84 bpm, oxygen with a blood pressure of 132/73 mmHg. The EKG at the peak infusion revealed sinus rhythm with no significant ST or T wave changes. Sestamibi was injected 20 seconds after Lexiscan infusion. Blood pressure at the end of recovery phase was 144/80 mmHg.Heart rate of 83bpm. Conclusions: 1. Normal EKG response to Lexiscan infusion. 2. No Lexiscan induced chest pain or cardiac arrhythmia. 3. Normal blood pressure and heart rate response. 4. Sestamibi/sestamibi perfusion scan pending; see separate report. Electronically Signed On 01-04-2020 11:56:06 CDT by Dallas Guerra M.D. [email or web address]
--- NOTE | 2019-12-28 07:09 | NMCV_ITS ---
NM charlie perf SPECT r/s* [id number] Enid Nguyen Age: 69 Gender: F : 1950 Exam Date: 12/28/2019 07:53 Ordering Phys: Diane Arteaga-C TOP FRAME MAKER Technologist: DANIEL Mooney Exam Location: [facility] Indications: CHEST PAIN STRESS TEST Please see separate stress test report in [facility] for full findings IMAGE PROTOCOL Rest/Stress 1 Lexiscan Day Radiopharmaceutical Dose (mCi) Administration Site Administered by Rest: Tc-99m 10.9 IV DANIEL Erazo Sestamibi Stress:Tc-99m 32.6 IV DANIEL Mooney Sestamiiman Rest: 28-Dec-2019 60 Discovery 630 Stress: 28-Dec-2019 30 Discovery 630 0.4mg Lexiscan. Images obtained in supine and prone position. SPECT RESULTS Technical Quality: Excellent Raw Data Analysis: Normal Image Corrections: No attenuation or motion correction applied Summed Stress Score: 0 Summed Rest Score: 1 Summed Difference Score: 0 PERFUSION FINDINGS SPECT images demonstrate homogeneous tracer distribution throughout the myocardium. FUNCTIONAL RESULTS (calculated via Gated SPECT) Stress Image LV EF (%): 86 Stress EDV (mL):56 TID: 1.08 Stress ESV (mL):8 Rest Image LV EF (%): 86 FUNCTIONAL FINDINGS: There is normal left ventricular systolic function. Left ventricle ejection fraction is hyperdynamic and 86% IMPRESSIONS Myocardial perfusion imaging is normal low probability for obstructive coronary artery disease. EKG segment will be documented separately.. Lily Chu MD (Electronically Signed) Final Date: 29 December 2019 12:32 S
--- NOTE | 2019-12-28 08:56 | SUR.PREOP ---
Patient reports no pain or discomfort prior to the start of the procedure.
[2019-12-28] MEDS: regadenoson 0.4 Mg/5 ml Syringe IVP (08:57)
[2019-12-28 09:13] VITALS: BP 144/80; PULSE 81
== END 2019-12-28 06:51 | disposition home or self-care (01) ==
LOC: CDL 06:51
PROVIDERS: PCP Registered Nurse; Visit Provider Nurse Practitioner Family
DX: R07.9 Chest pain, unspecified (principal)
CPT/HCPCS: 78452; 93017; A9500; J2785

== ENCOUNTER → 2020-01-10 12:55 | Outpatient (BNVA) | payer MEDICARE, MEDICAID, SELFPAY | PROVIDERS: Family Provider Registered Nurse; PCP Registered Nurse; Visit Provider Specialist | DX: E11.9 Type 2 diabetes mellitus without complications (principal); E78.2 Mixed hyperlipidemia; I10 Essential (primary) hypertension; R00.0 Tachycardia, unspecified; R06.02 Shortness of breath; Z87.891 Personal history of nicotine dependence; Z86.73 Personal history of transient ischemic attack (TIA), and cerebral infarction without residual deficits | CPT/HCPCS: 99213 ==

== ENCOUNTER → 2020-02-23 10:32 | Outpatient (BNVA) | payer MEDICARE, MEDICAID, SELFPAY | PROVIDERS: Family Provider Registered Nurse; PCP Registered Nurse; Visit Provider Internal Medicine Critical Care Medicine | DX: Z20.828 Contact with and (suspected) exposure to other viral communicable diseases (principal) | CPT/HCPCS: 87635 ==

== ENCOUNTER 2020-02-27 13:42 | Outpatient (CLI) | payer MEDICARE, MEDICAID, SELFPAY | END 2020-02-27 13:43 | disposition home or self-care (01) | LOC: LAB 12-07 16:04 | PROVIDERS: PCP Registered Nurse; Visit Provider Registered Nurse | DX: E11.9 Type 2 diabetes mellitus without complications (principal) | CPT/HCPCS: 80053; 80061; 83036 ==

== ENCOUNTER → 2020-03-15 09:03 | Outpatient (BNVA) | payer MEDICARE, MEDICAID, SELFPAY | PROVIDERS: Family Provider Registered Nurse; PCP Registered Nurse; Visit Provider Nurse Practitioner Family | DX: Z20.828 Contact with and (suspected) exposure to other viral communicable diseases (principal) | CPT/HCPCS: 87635 ==

== ENCOUNTER → 2020-04-17 09:25 | Outpatient (BNVA) | payer MEDICARE, MEDICAID, SELFPAY | PROVIDERS: Family Provider Registered Nurse; PCP Registered Nurse; Visit Provider Internal Medicine Critical Care Medicine | DX: R06.02 Shortness of breath (principal); Z20.828 Contact with and (suspected) exposure to other viral communicable diseases | CPT/HCPCS: 87635 ==

== ENCOUNTER 2020-04-24 12:41 | Outpatient (CLI) | payer MEDICARE, MEDICAID, SELFPAY ==
--- NOTE | 2020-04-24 10:34 | PFTS_ITS ---
Date of Study:04/24/20 Date of Dictation: MECHANICS: Forced vital capacity (FVC) is normal. Forced expiratory volume in one second (FEV1) is normal. FEV1/FVC is normal. FLOW VOLUME LOOP: Minimal scooping. LUNG VOLUMES: Total lung capacity (TLC) is reduced. Residual volume (RV) is reduced. DIFFUSING CAPACITY FOR CARBON MONOXIDE: Mild reduced. INTERPRETATION: The postbronchodilator spirometry is normal. There is postbronchodilator response although it does not reach statistical significance. Lung volumes are consistent with restrictive lung disease. Gas exchange (DLCO) is mildly reduced. MTDD
--- NOTE | 2020-04-24 12:51 | PFTS_ITS ---
Date of Study:04/24/2020 Date of Dictation: MECHANICS: Forced vital capacity (FVC) is . Forced expiratory volume in one second (FEV1) is . FEV1/FVC is . FLOW VOLUME LOOP: . LUNG VOLUMES: Total lung capacity (TLC) is . Residual volume (RV) is . DIFFUSING CAPACITY FOR CARBON MONOXIDE: . INTERPRETATION: The pulmonary function tests are . mechanics and lung volumes. Gas exchange (DLCO) is . MTDD
== END 2020-04-24 12:42 | disposition home or self-care (01) ==
PROVIDERS: PCP Registered Nurse; Visit Provider Internal Medicine Critical Care Medicine
DX: R06.02 Shortness of breath (principal)
CPT/HCPCS: 94060; 94726; 94729

== ENCOUNTER → 2020-08-16 09:01 | Outpatient (BNVA) | payer MEDICARE, MEDICAID, SELFPAY | PROVIDERS: PCP Registered Nurse; Visit Provider Registered Nurse | DX: E11.9 Type 2 diabetes mellitus without complications (principal) | CPT/HCPCS: 80053; 81000; 83036 ==

== ENCOUNTER → 2020-11-26 09:45 | Outpatient (BNVA) | payer MEDICARE, MEDICAID, SELFPAY | PROVIDERS: PCP Registered Nurse; Visit Provider Registered Nurse | DX: E11.9 Type 2 diabetes mellitus without complications (principal); E03.9 Hypothyroidism, unspecified; E78.2 Mixed hyperlipidemia; I10 Essential (primary) hypertension | CPT/HCPCS: 80053; 83036; 84443 ==

== ENCOUNTER → 2021-02-13 09:30 | Outpatient (BNVA) | payer MEDICARE, MEDICAID, SELFPAY | PROVIDERS: PCP Registered Nurse; Visit Provider Registered Nurse | DX: E03.9 Hypothyroidism, unspecified (principal) | CPT/HCPCS: 84443 ==

== ENCOUNTER → 2021-06-18 09:53 | Outpatient (BNVA) | payer MEDICARE, MEDICAID, SELFPAY | PROVIDERS: PCP Registered Nurse; Visit Provider Registered Nurse | DX: E03.9 Hypothyroidism, unspecified (principal); E11.9 Type 2 diabetes mellitus without complications; K21.9 Gastro-esophageal reflux disease without esophagitis | CPT/HCPCS: 81000; 83036; 84443 ==

== ENCOUNTER → 2021-11-26 11:15 | Outpatient (BNVA) | payer MEDICARE, MEDICAID, SELFPAY | PROVIDERS: PCP Registered Nurse; Visit Provider Registered Nurse | DX: E11.9 Type 2 diabetes mellitus without complications (principal); E03.9 Hypothyroidism, unspecified; R06.02 Shortness of breath; I10 Essential (primary) hypertension; N20.0 Calculus of kidney | CPT/HCPCS: 80053; 80061; 83036; 83721; 84443; 85025 ==

== ENCOUNTER 2021-12-19 09:17 | Outpatient (CLI) | payer MEDICARE, MEDICAID, SELFPAY ==
--- NOTE | 2021-12-19 09:33 | MM_ITS ---
WS: [id number] BILATERAL SCREENING DIGITAL TOMOSYNTHESIS MAMMOGRAM WITH CAD HISTORY: Screening exam. COMPARISON: None available. Bilateral CC and MLO views with tomosynthesis and synthetic mammography submitted. Computer aided det ection analyzed. Breast composition: There are scattered areas of fibroglandular density. No suspicious masses, microc alcifications or architectural distortion. Mild bilateral breast arterial calcifications. MM/[place] [id number] IMPRESSION: BI-RADS: 2-Benign FOLLOW UP: 1 Year Follow-up
== END 2021-12-19 09:18 | disposition home or self-care (01) ==
PROVIDERS: PCP Registered Nurse; Visit Provider Registered Nurse
DX: Z12.31 Encounter for screening mammogram for malignant neoplasm of breast (principal)
CPT/HCPCS: 77063; 77067

== ENCOUNTER → 2021-12-23 15:30 | Outpatient (BNVA) | payer MEDICARE, MEDICAID, SELFPAY | PROVIDERS: PCP Registered Nurse; Visit Provider Registered Nurse | DX: G89.29 Other chronic pain (principal); M25.50 Pain in unspecified joint; M62.838 Other muscle spasm | CPT/HCPCS: 80053 ==

== ENCOUNTER → 2022-01-10 10:01 | Outpatient (BNVA) | payer MEDICARE, MEDICAID, SELFPAY | PROVIDERS: PCP Registered Nurse; Visit Provider Registered Nurse | DX: E87.1 Hypo-osmolality and hyponatremia (principal); I10 Essential (primary) hypertension; M79.675 Pain in left toe(s) | CPT/HCPCS: 80053; 84550; 85025; 86140 ==

== ENCOUNTER → 2022-01-24 14:15 | Outpatient (BNVA) | payer MEDICARE, MEDICAID, SELFPAY | PROVIDERS: PCP Registered Nurse; Referring Provider Registered Nurse; Visit Provider Podiatrist Foot & Ankle Surgery | DX: S93.402A Sprain of unspecified ligament of left ankle, initial encounter (principal); M10.9 Gout, unspecified; X50.9XXA Other and unspecified overexertion or strenuous movements or postures, initial encounter | CPT/HCPCS: 73610; 84550; 99203 ==

== ENCOUNTER → 2022-02-28 09:05 | Outpatient (BNVA) | payer MEDICARE, MEDICAID, SELFPAY | PROVIDERS: PCP Registered Nurse; Visit Provider Podiatrist Foot & Ankle Surgery | DX: S93.402A Sprain of unspecified ligament of left ankle, initial encounter (principal); M10.9 Gout, unspecified; X58.XXXA Exposure to other specified factors, initial encounter | CPT/HCPCS: 99213 ==

== ENCOUNTER → 2022-06-09 10:43 | Outpatient (BNVA) | payer MEDICARE, MEDICAID, SELFPAY | PROVIDERS: PCP Registered Nurse; Visit Provider Registered Nurse | DX: E03.9 Hypothyroidism, unspecified (principal); E11.9 Type 2 diabetes mellitus without complications; I10 Essential (primary) hypertension; G89.29 Other chronic pain; M25.50 Pain in unspecified joint; Z91.14 Patient's other noncompliance with medication regimen | CPT/HCPCS: 80053; 80061; 82043; 83036; 84443; 85025 ==

== ENCOUNTER → 2022-08-26 08:53 | Outpatient (BNVA) | payer MEDICARE, MEDICAID, SELFPAY | PROVIDERS: PCP Registered Nurse; Visit Provider Registered Nurse | DX: E11.9 Type 2 diabetes mellitus without complications (principal); E03.9 Hypothyroidism, unspecified | CPT/HCPCS: 80053; 83036; 84443 ==

== ENCOUNTER → 2022-12-04 09:27 | Outpatient (BNVA) | payer MEDICARE, MEDICAID, SELFPAY | PROVIDERS: PCP Registered Nurse; Visit Provider Registered Nurse | DX: E11.9 Type 2 diabetes mellitus without complications (principal); E03.9 Hypothyroidism, unspecified | CPT/HCPCS: 80053; 80061; 83036; 84443; 85025 ==

== ENCOUNTER → 2023-03-03 09:33 | Outpatient (BNVA) | payer MEDICARE, MEDICAID, SELFPAY | PROVIDERS: PCP Registered Nurse; Visit Provider Registered Nurse | DX: E11.9 Type 2 diabetes mellitus without complications (principal); E78.5 Hyperlipidemia, unspecified; I10 Essential (primary) hypertension; E03.9 Hypothyroidism, unspecified | CPT/HCPCS: 80053; 80061; 82607; 83036; 84443; 85025 ==

== ENCOUNTER → 2023-09-16 09:22 | Outpatient (BNVA) | payer MEDICARE, MEDICAID, SELFPAY | PROVIDERS: PCP Registered Nurse; Visit Provider Registered Nurse | DX: E11.9 Type 2 diabetes mellitus without complications (principal); E03.9 Hypothyroidism, unspecified; I10 Essential (primary) hypertension; E78.2 Mixed hyperlipidemia; H81.13 Benign paroxysmal vertigo, bilateral; M25.50 Pain in unspecified joint; G89.29 Other chronic pain; Z79.899 Other long term (current) drug therapy | CPT/HCPCS: 80053; 80061; 83036; 85025 ==

== ENCOUNTER → 2023-10-13 09:15 | Outpatient (BNVA) | payer MEDICARE, MEDICAID, SELFPAY | PROVIDERS: PCP Registered Nurse; Visit Provider Registered Nurse | DX: I10 Essential (primary) hypertension (principal); E11.9 Type 2 diabetes mellitus without complications; E03.9 Hypothyroidism, unspecified | CPT/HCPCS: 80053; 84443 ==

== ENCOUNTER → 2024-05-25 08:20 | Outpatient (BNVA) | payer MEDICARE, MEDICAID, SELFPAY | PROVIDERS: PCP Registered Nurse; Visit Provider Registered Nurse | DX: E11.9 Type 2 diabetes mellitus without complications (principal); E03.9 Hypothyroidism, unspecified | CPT/HCPCS: 80053; 80061; 82607; 83036; 84443; 85025 ==

== ENCOUNTER → 2024-11-15 13:37 | Outpatient (BNVA) | payer MEDICARE, MEDICAID, SELFPAY | PROVIDERS: PCP Registered Nurse; Visit Provider Registered Nurse | DX: E11.9 Type 2 diabetes mellitus without complications (principal); E03.9 Hypothyroidism, unspecified | CPT/HCPCS: 80053; 83036; 84443 ==

== ENCOUNTER 2024-12-19 10:12 | Outpatient (CLI) | payer MEDICARE, SELFPAY ==
--- NOTE | 2024-12-19 11:15 | USCV_ITS ---
Enid Nguyen Age: 74 Gender: F : 1950 Exam Date: 12/19/2024 10:35 Ordering Phys: Debi MitchellP Technologist: ABIODUN Exam Location: [facility] – [place] Indication: TIA Risk Factors: Previous Vascular Surgery: Right Brachial BP: / Left Brachial BP: / Right Left Velocity (cm/s) Spectral Plaque Velocity (cm/s) Spectral Plaque Syst/Diast Broadening Syst/Diast Broadening 40.90/ 7.80 Prox CCA 43.10 / 5.90 49.30/ 12.30 Mid CCA 48.80 / 6.60 42.00/ 10.40 Distal CCA 45.60 / 12.80 63.60/ 19.70 Prox ICA 88.80 / 11.80 68.80/ 16.70 Mid ICA 45.60 / 15.80 55.10/ 15.90 Distal ICA 69.00 / 20.60 69.30 ECA 115.90 1.60 ICA/CCA 1.90 Antegrade Vertebral Antegrade 66.90/ 12.10 cm/s 41.80/ 3.90 cm/s Tri Subclavian Tri 78.40 49.30 CONCLUSIONS Right ICA stenosis <50%. Moderate atheromatous plaque right carotid bulb/ICA. Left ICA stenosis <50%. Moderate atheromatous plaque left carotid bulb/ICA. Normal antegrade Doppler flow noted in the right vertebral artery. Normal antegrade Doppler flow noted in the left vertebral artery. Nacho Lopez MD (Electronically Signed) Final Date: 19 December 2024 11:29 S
== END 2024-12-19 10:13 | disposition home or self-care (01) ==
LOC: RAD 10:13
PROVIDERS: PCP Registered Nurse; Visit Provider Registered Nurse
DX: I65.23 Occlusion and stenosis of bilateral carotid arteries (principal); H54.62 Unqualified visual loss, left eye, normal vision right eye; Z86.73 Personal history of transient ischemic attack (TIA), and cerebral infarction without residual deficits
CPT/HCPCS: 93880

== ENCOUNTER 2025-02-23 12:15 | Outpatient (CLI) | payer MEDICARE, SELFPAY ==
--- NOTE | 2025-02-23 12:40 | MM_ITS ---
WS: [id number] BILATERAL SCREENING DIGITAL TOMOSYNTHESIS MAMMOGRAM WITH CAD HISTORY: Z12.31 - Encounter for screening mammogram for malignant ... COMPARISON: 12/19/2021 Bilateral CC and MLO views with tomosynthesis and synthetic mammography submitted. Computer aided detection analyzed. Breast composition: There are scattered areas of fibroglandular density. No suspicious masses, microcalcifications or architectural distortion. Moderate breast arterial calcifications within each breast. MM/MM scr tomosynthesis [id number] IMPRESSION: BI-RADS: 2 - Benign. FOLLOW UP: 1 Year Follow-up
== END 2025-02-23 12:16 | disposition home or self-care (01) ==
LOC: MOBLMAM 12:16
PROVIDERS: PCP Registered Nurse; Visit Provider Registered Nurse
DX: Z12.31 Encounter for screening mammogram for malignant neoplasm of breast (principal); R92.323 Mammographic fibroglandular density, bilateral breasts; R92.1 Mammographic calcification found on diagnostic imaging of breast
CPT/HCPCS: 77063; 77067